=== PATIENT | male | born 1960 | race Caucasian/White ===

== ENCOUNTER 2017-01-03 11:36 | Emergency (ER) | payer OTHER ==
[~2017-01-03] VITALS: Ht 185.4 cm; Wt 90.0 kg
[2017-01-03 11:38] VITALS: BP 127/75; PULSE 66; RESP 15; TEMP 98.1; O2SAT 95
[2017-01-03] MEDS ORDERED: HYDR-3533 PO (12:41)
[2017-01-03] MEDS ORDERED: ROBA500T PO (12:41)
[2017-01-03] MEDS ORDERED: MEDR4PAK PO (12:41)
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
[2017-01-03] MEDS ORDERED: ORPHENADRINE INJ 60 MG/2 ML AMP IM ONE (12:45)
[2017-01-03] MEDS ORDERED: KETOROLAC TROMETHAMINE 60 MG/2 ML (IM) VIAL IM ONE (12:45)
== END 2017-01-03 13:01 | disposition home or self-care (01) ==
LOC: NEPK 11:36
DX: M54.42 Lumbago with sciatica, left side (principal); G89.29 Other chronic pain
CPT/HCPCS: 96372; 99284; J1885; J2360